=== PATIENT | female | born 1995 | race Caucasian/White ===

== ENCOUNTER 2023-08-04 13:35 | Emergency (ER) | payer OTHER ==
[~2023-08-04] VITALS: Ht 162.6 cm; Wt 55.8 kg
[2023-08-04 14:12] VITALS: TEMP 98.9
[2023-08-04 17:12] LABS: BASOPHILS % (AUTO) 0.2 % (0.0-2.0); EOSINOPHILS # (AUTO) 0.2 K/uL (0.0-0.7); EOSINOPHILS % (AUTO) 1.5 % (0.0-6.0); HEMATOCRIT 37 % (33-45); HEMOGLOBIN 12.8 g/dL (11.5-14.8); LYMPHOCYTES # (AUTO) 1.8 K/uL (0.8-4.8); LYMPHOCYTES % (AUTO) 18.7 % (20.0-44.0); MEAN CORPUSCULAR HEMOGLOBIN 31 PG (26.0-33.0); MEAN CORPUSCULAR HGB CONC 35 g/dl (31.0-36.0); MEAN CORPUSCULAR VOLUME 91 fL (82-100); MONOCYTES # (AUTO) 0.7 K/uL (0.1-1.30); MONOCYTES % (AUTO) 6.8 % (2.0-12.0); NEUTROPHILS # (AUTO) 7.1 K/uL (1.8-8.9); NEUTROPHILS % (AUTO) 72.8 % (43.0-81.0); PLATELET COUNT (AUTO) 246 K/uL (150-450); RED BLOOD CELL COUNT(AUTO) 4.07 MIL/uL (4.0-5.2); RED CELL DISTRIBUTION WIDTH 12.9 % (11.5-15.0); WHITE BLOOD COUNT (AUTO) 9.8 K/uL (4.3-11.0)
[2023-08-04] MEDS: IV NS 0.9% 1,000 ML BAG IV ONE (17:20)
[2023-08-04 17:33] LABS: ALBUMIN 3.5 g/dL (3.4-5.0); BILIRUBIN,DIRECT 0.1 mg/dL (0.0-0.2); BILIRUBIN,TOTAL 0.5 mg/dL (0.2-1.0); CALCIUM, SERUM 9.7 mg/dL (8.5-10.1); CREATININE 0.7 mg/dL (0.6-1.3); POTASSIUM 3.8 mmol/L (3.5-5.1); TOTAL PROTEIN, SERUM 8.6 g/dL (6.4-8.2)
[2023-08-04 18:17] LABS: PREGNANCY TEST URINE QUAL NEGATIVE (NEGATIVE)
[2023-08-04 18:27] LABS: APPEARANCE,URINE SLIGHTLY CLOUDY (CLEAR); BILIRUBIN,URINE NEGATIVE (NEGATIVE); BLOOD, URINE 1+ Ery/uL (NEGATIVE); COLOR,URINE YELLOW (YELLOW); KETONES,URINE 1+ mg/dL (NEGATIVE); LEUKOCYTE ESTERASE ,URINE 2+ (NEGATIVE); NITRITE, URINE POSITIVE (NEGATIVE); PH,URINE 5.5 (5.0-8.0); PROTEIN,URINE TRACE mg/dl (NEGATIVE); UGLUCOSE NEGATIVE (NEGATIVE); UROBILINOGEN,URINE 0.2 EU/dL (0.2)
[2023-08-04 18:44] LABS: ADD URINE CULTURE YES; BACTERIA,URINE 3+ /HPF (None Seen); SQUAMOUS EPITHELIAL CELL,UR Few /HPF (None Seen); WBC,URINE 51-80 /HPF (0-3)
[2023-08-04] MEDS ORDERED: KETOROLAC TROMETHAMINE 15 MG/ML VIAL ONE (19:48)
[2023-08-04] MEDS ORDERED: CEFTRIAXONE 1GM BAG (ER ONLY) 50 ML IV ONE (19:48)
[2023-08-04] MEDS ORDERED: TAMSULOSIN 0.4 MG CAP.SR.24H ONE (19:49)
[2023-08-04] MEDS: KETOROLAC TROMETHAMINE 15 MG/ML VIAL IV ONE (19:51)
[2023-08-04] MEDS: TAMSULOSIN 0.4 MG CAP.SR.24H PO ONE (19:55)
[2023-08-04] MEDS: CEFTRIAXONE 1GM BAG (ER ONLY) 1 GM/50 ML PIGGYBACK IV ONE (19:58)
[2023-08-04] MEDS ORDERED: IBUP-1955 PO (20:06)
[2023-08-04] MEDS ORDERED: TAMS-12 PO (20:06)
[2023-08-04] MEDS ORDERED: ONDA4TAB11 PO (20:06)
[2023-08-04] MEDS ORDERED: CEFP200T14 PO (20:06)
[2023-08-04 21:09] VITALS: BP 120/75; O2SAT 100
== END 2023-08-04 20:40 | disposition home or self-care (01) ==
LOC: ER 13:42
DX: N20.9 Urinary calculus, unspecified (principal); N39.0 Urinary tract infection, site not specified; R10.11 Right upper quadrant pain
CPT/HCPCS: 99285; 74176; 96365; 76705; 96361; 96375; 85025; 80048; 87086; 83690; 80076; 84703; 81001; 36415; J7030; J0696; J1885

== ENCOUNTER 2023-08-05 01:09 | Emergency (ER) | payer OTHER ==
[~2023-08-05] VITALS: Ht 162.6 cm; Wt 55.8 kg
[~2023-08-05 01:09] MED LIST: CEFP200T14 PO; IBUP-1955 PO; ONDA4TAB11 PO; TAMS-12 PO
[2023-08-05] MEDS ORDERED: IBUPROFEN 600 MG TABLET ONE (01:52)
[2023-08-05 02:15] LABS: BASOPHILS % (AUTO) 0.1 % (0.0-2.0); EOSINOPHILS # (AUTO) 0.1 K/uL (0.0-0.7); EOSINOPHILS % (AUTO) 1.1 % (0.0-6.0); HEMATOCRIT 34 % (33-45); HEMOGLOBIN 11.5 g/dL (11.5-14.8); LYMPHOCYTES # (AUTO) 1.1 K/uL (0.8-4.8); LYMPHOCYTES % (AUTO) 9.5 % (20.0-44.0); MEAN CORPUSCULAR HEMOGLOBIN 31 PG (26.0-33.0); MEAN CORPUSCULAR HGB CONC 34 g/dl (31.0-36.0); MEAN CORPUSCULAR VOLUME 91 fL (82-100); MONOCYTES # (AUTO) 0.1 K/uL (0.1-1.30); MONOCYTES % (AUTO) 1.2 % (2.0-12.0); NEUTROPHILS # (AUTO) 10.4 K/uL (1.8-8.9); NEUTROPHILS % (AUTO) 88.1 % (43.0-81.0); PLATELET COUNT (AUTO) 215 K/uL (150-450); RED CELL DISTRIBUTION WIDTH 12.9 % (11.5-15.0); WHITE BLOOD COUNT (AUTO) 11.8 K/uL (4.3-11.0)
[2023-08-05 02:15] LABS: APPEARANCE,URINE SLIGHTLY CLOUDY (CLEAR); BILIRUBIN,URINE NEGATIVE (NEGATIVE); BLOOD, URINE 1+ Ery/uL (NEGATIVE); COLOR,URINE YELLOW (YELLOW); KETONES,URINE NEGATIVE (NEGATIVE); LEUKOCYTE ESTERASE ,URINE 2+ (NEGATIVE); NITRITE, URINE NEGATIVE (NEGATIVE); PROTEIN,URINE TRACE mg/dl (NEGATIVE); UGLUCOSE NEGATIVE (NEGATIVE)
[2023-08-05 02:17] LABS: PREGNANCY TEST URINE QUAL NEGATIVE (NEGATIVE)
[2023-08-05 02:32] LABS: LACTIC ACID 1.8 mmol/L (0.4-2.0)
[2023-08-05 02:38] LABS: AMPHETAMINE, URINE NEGATIVE (NEGATIVE); BARBITURATE, URINE NEGATIVE (NEGATIVE); BENZODIAZEPINE, URINE NEGATIVE (NEGATIVE); CANNABINOID, URINE NEGATIVE (NEGATIVE); COCCAINE, URINE NEGATIVE (NEGATIVE); OPIATE, URINE NEGATIVE (NEGATIVE); PHENCYCLIDINE SCREEN,URINE NEGATIVE (NEGATIVE)
[2023-08-05 02:45] LABS: CALCIUM, SERUM 8.9 mg/dL (8.5-10.1); CREATININE 0.9 mg/dL (0.6-1.3); POTASSIUM 3.8 mmol/L (3.5-5.1)
[2023-08-05] MEDS: IBUPROFEN 600 MG TABLET PO ONE (02:50)
[2023-08-05 02:51] LABS: ALBUMIN 3.2 g/dL (3.4-5.0); BILIRUBIN,TOTAL 0.3 mg/dL (0.2-1.0); TOTAL PROTEIN, SERUM 7.7 g/dL (6.4-8.2)
[2023-08-05 02:53] LABS: ADD URINE CULTURE YES; BACTERIA,URINE Many /HPF (None Seen); SQUAMOUS EPITHELIAL CELL,UR Moderate /HPF (None Seen); WBC,URINE 51-80 /HPF (0-3)
[2023-08-05 04:58] VITALS: BP 139/82; TEMP 101.7; O2SAT 100
== END 2023-08-05 04:58 | disposition home or self-care (01) ==
LOC: ER 01:11
DX: N39.0 Urinary tract infection, site not specified (principal); N20.9 Urinary calculus, unspecified; R00.0 Tachycardia, unspecified
CPT/HCPCS: 36415; 80053-TC; 81001; 83605-TC; 84703-TC; 85025-TC; 87040-TC; 87086-TC